=== PATIENT | female | born 1975 | race Caucasian/White ===

== ENCOUNTER 2017-07-10 16:48 | Inpatient (IN) ==
[2017-07-10] MEDS ORDERED: *HR* OxyCODONE/APAP 5/325 TABLET PO PRN (17:41)
[2017-07-10] MEDS ORDERED: Sennosides/Docusate Sodium TABLET PO PRN (17:41)
--- NOTE | 2017-07-10 17:53 | Internal Med History&Physical ---
Date of Encounter: 07/10/17 Time of Encounter: 17:50 Assessment and Plan (1) Brain tumor, glioma Current visit: Yes Status: Acute s/p Glioma exact pathology not known at the resent time as records are not available possible high grade s/p surgery needs followup (2) Diabetes 1.5, managed as type 2 Current visit: Yes Status: Chronic stable on metformin Sliding scale she is on steroid and will needs followup or adjusted to add insulin for time being HBA1c ordered Internal Medicine - H&P: HPI Chief complaint: s/p surgery craniotomy Admitted From: Intrahospital Transfer History of present illness: Ms. Donald is a 42 year old female who was transferred from [facility] after craniotomy and s/p tumor removel She states that she had a seizure few weeks ago and was found to have a tumor . One tumor was removed other wsd to be removed by radiation . most likely high grade glioblastoma Past Med Surg Social Fam HX - Past Medical History Medical history: other Psychiatric history: no psych history - Social History Smoking Status: Current every day smoker Smokeless Tobacco Status: No Alcohol use: unknown Drug use: unknown - Family History Father Hx Family Endocrine Disorder: Yes (diabetes) Internal Medicine - H&P: Meds Ascorbic Acid [Vitamin C] 500 mg PO DAILY 07/10/17 [History] Famotidine [Heartburn Prevention] 20 mg PO BIDWM 07/10/17 [History] LevETIRAcetam [Keppra] 500 mg PO BID 07/10/17 [History] metFORMIN [Glucophage] 500 mg PO BIDWM 07/10/17 [History] 3 Allergy/AdvReac Type Severity Reaction Status Date / Time Unable to Assess Allergy Verified 06/14/17 17:26 All Systems PM: A 10-system review of systems was performed and is negative for pertinent findings except as documented above in the HPI. - Constitutional Constitutional: no anorexia, no chills, no fever(s), no falls, no lethargy, no weakness, no weight gain, no weight loss - EENT Eyes: no blurry vision, no change in vision, no diplopia, no dry eye, no itchy eyes, no pain Nose, mouth and throat: no change in voice, no dysphagia, no facial pain, no mouth pain, no nasal congestion - Breasts Breasts: no nipple discharge, no swelling - Cardiovascular Cardiovascular ROS IM: no claudication, no diaphoresis, no dyspnea, no dyspnea on exertion, no edema, no irregular heart rhythm, no lightheadedness, no orthopnea, no palpitations - Respiratory Respiratory: no cough, no dyspnea, no dyspnea on exertion, no wheezing, no pain on inspiration, no chest congestion - Genitourinary Genitourinary: no urinary incontinence, no urinary urgency, no vaginal discharge Additional comments: normal periods per patient - Musculoskeletal Musculoskeletal ROS IM: no arthralgias, no atrophy, no back pain, no numbness, no stiffness, no tingling - Neurological Neurological ROS: convulsions, no disequilibrium, no dizziness, no focal weakness, no frequent falls, no headache(s), no lack of coordination, no loss of vision, no memory loss, no numbness, no tingling, no tremor(s), no vertigo, no weakness Additional comments: expressive aphasia noted - Constitutional Vitals: Temp Pulse Resp BP Pulse Ox 98.2 F 46 18 120/69 96 07/10/17 17:04 07/10/17 17:04 07/10/17 17:04 07/10/17 17:04 07/10/17 17:04 General appearance: Present: A&O X 2, morbidly obese, pleasant, answers questions appropriately. Absent: no acute distress Exam: expressive aphasia some inappropriate expression as laughing - Head Additional comments: has surgical scar front and middle area - Eye Eye exam: Present: EOMI, PERRL. Absent: scleral icterus, conjuntiva pink - Neck Neck exam general surgery: Present: supple. Absent: tenderness, nuchal rigidity - Respiratory Respiratory exam: Present: CTAB. Absent: respiratory distress, rhonchi, stridor , wheezes, tachypnea - Cardiovascular Cardiovascular exam: Present: bradycardia, RRR, +S1, +S2, +S3. Absent: distant heart sounds, irregular rhythm, JVD, systolic murmur - GI/Abdominal GI/Abdominal exam: Present: normal bowel sounds, soft. Absent: diminished bowel sounds, distended, guarding, rebound, rigid, tenderness - Extremities Exam Extremities exam: Absent: mottling, pedal edema, tenderness - Incison Incision: Present: clean and dry, intact. Absent: erythema - Neurological Exam Neurological exam: Present: CN II-XII intact, reflexes normal, no focal deficits , strengths equal and symetr throughout. Absent: facial droop, speech deficit Additional comments: expressive aphasia otherwise no neurological deficit noted at the present time
[2017-07-10] MEDS ORDERED: *HR* Dextrose 50 % in Water (Syg) 50 ML SYRINGE IVP PRN (17:59)
[2017-07-10] MEDS ORDERED: D5% in Water 1,000 ML IVC PRN (17:59)
[2017-07-10] MEDS ORDERED: Dextrose Gel 15 GM PO PRN ×2 (17:59)
[2017-07-10] MEDS: levETIRAcetam 250 MG TABLET PO SCH (21:13)
[2017-07-10] MEDS: Insulin LISPRO 300 UNITS/3 ML VIAL SQ SCH (21:14)
[2017-07-11 05:28] LABS: Basophils # 0.1 K/mcL (0.0-0.2); Basophils % 0.5 %; Eosinophils % 0.1 %; Hematocrit 33.1 % (35.3-44.9); Hemoglobin 11.4 g/dL (11.5-15.4); INR 1.1; Immature Granulocytes % 5.6 % (0-4); Lymphocytes # 4.1 K/mcL (0.6-4.6); Lymphocytes % 27.7 %; Mean Corpuscular HGB Conc 34.4 g/dL (31.6-35.5); Mean Corpuscular Volume 95.9 fL (83.0-100.0); Mean Platelet Volume 9.6 fL (9.4-12.4); Monocytes # 0.9 K/mcL (0.0-1.3); Monocytes % 6.2 %; Neutrophils # 8.9 K/mcL (1.6-8.9); Nucleated Red Blood Cells 0.3 /100 WBC (0); Platelet Count 233 K/mcL (140-400); Prothrombin Time 11.4 Seconds (9.4-12.1); Red Blood Count 3.45 M/mcL (3.82-4.97); Red Cell Distribution Width 13.2 % (11.5-14.5); Segmented Neutrophils % 59.9 %
[2017-07-11 05:32] LABS: Activated Partial Thrombo Time 22.1 Seconds (26.0-36.0)
[2017-07-11 05:39] LABS: BUN/Creatinine Ratio 30 (6-26); Blood Urea Nitrogen 26 mg/dL (7-20); Calcium 9.4 mg/dL (8.6-10.8); Carbon Dioxide 26 mEq/L (19-29); Chloride 101 mEq/L (98-109); Glucose 142 mg/dL (70-99); Osmolality,Calculated 297 (280-300); Potassium 4.4 mEq/L (3.5-4.5); Sodium 140 mEq/L (136-145); eGFR For African Americans > 60 (> 60); eGFR For Non-African Americans > 60 (> 60)
[2017-07-11] MEDS: *HR* Metformin 500 MG TABLET PO SCH ×2 (08:33→17:15)
[2017-07-11] MEDS: Ascorbic Acid 500 MG TABLET PO SCH (08:33)
[2017-07-11] MEDS: levETIRAcetam 250 MG TABLET PO SCH ×2 (08:33→20:29)
[2017-07-11] MEDS: Famotidine 20 MG TABLET PO SCH ×2 (08:33→17:15)
[2017-07-11] MEDS: Insulin LISPRO 300 UNITS/3 ML VIAL SQ SCH ×4 (08:34→20:30)
[2017-07-11 08:47] LABS: Hemoglobin A1C 6.6 %
--- NOTE | 2017-07-11 13:52 | Internal Med Progress Note ---
Date of Encounter: 07/11/17 Time of Encounter: 13:50 - Assessment and plan (1) Brain tumor, glioma Current Visit: Yes Status: Acute Assessment and plan: RI patient had craniotomy for the above. Here for therapy (2) Diabetes 1.5, managed as type 2 Current Visit: Yes Status: Chronic Assessment and plan: Sugars been followed - Time Spent With Patient less than 15 minutes - Subjective Interval history: Working with therapists. The issues are safety cognitive reaction and also she is having some aphagia difficulties. - Constitutional Vitals: Temp Pulse Resp BP Pulse Ox 97.8 F 50 16 118/76 98 07/11/17 11:00 07/11/17 11:00 07/11/17 11:00 07/11/17 11:00 07/11/17 11:00 General appearance: Present: A&O X 2, morbidly obese, pleasant, answers questions appropriately. Absent: no acute distress - Head Head exam: Present: atraumatic, normal inspection, normocephalic - Neck Neck exam general surgery: Present: supple, trachea midline. Absent: lymphadenopathy - Respiratory Respiratory exam: Present: CTAB. Absent: accessory muscle use, rales, rhonchi, wheezes - Cardiovascular Cardiovascular exam: Present: RRR, +S1, +S2. Absent: diastolic murmur, gallop, rubs, systolic murmur Internal Medicine: Result - Labs CBC & Chem 7: 07/11/17 04:50 07/11/17 04:50 Labs: Short CBC 07/11/17 Range/Units 04:50 WBC 14.9 H (4.3-11.1) K/mcL Hgb 11.4 L (11.5-15.4) g/dL Hct 33.1 L (35.3-44.9) % Plt Count 233 (140-400) K/mcL Neutrophils # 8.9 (1.6-8.9) K/mcL BMP 07/11/17 04:50 Sodium 140 Potassium 4.4 Chloride 101 Carbon Dioxide 26 BUN 26 H Creatinine 0.88 Glucose 142 H Calcium 9.4 Lab noted - ABG Interpretation ABG results: PT/INR, D-dimer PT 11.4 Seconds (9.4-12.1) 07/11/17 04:50 Consult Discharge Plan - Plan Referrals: NONE,PCP [Primary Care Provider] -
[2017-07-12] MEDS: levETIRAcetam 250 MG TABLET PO SCH ×2 (09:01→22:14)
[2017-07-12] MEDS: Famotidine 20 MG TABLET PO SCH ×2 (09:01→16:57)
[2017-07-12] MEDS: *HR* Metformin 500 MG TABLET PO SCH ×2 (09:01→16:57)
[2017-07-12] MEDS: Ascorbic Acid 500 MG TABLET PO SCH (09:01)
[2017-07-12] MEDS: Insulin LISPRO 300 UNITS/3 ML VIAL SQ SCH ×4 (09:02→22:13)
--- NOTE | 2017-07-12 12:46 | Physical Med Progress Note ---
Date of Encounter: 07/12/17 Time of Encounter: 12:38 Physical Medicine-PN: Subj Interval history: PMR PCC Note Patient admitted secondary to brain tumors. Patient did well with CRE. Patient able to cross at cross walks without cues. She has no safety issues for navigating the community. Patient ambulated 500 feet. She has some dizziness. No LOB. 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 Patient has difficulty with word finding. Patient has some issues with comprehension with multi step instructions. Patient supervision for shower safety. She required cues for sitting safely in the shower. Patient aware of errors, but unable to problem solve to correct them. Plan to discharge to home with supervision on 07/14/17. - Constitutional Vitals: Vital Signs Temp Pulse Resp BP Pulse Ox 07/12/17 06:00 97.5 F L 50 16 116/68 96 07/11/17 18:54 97.8 F 56 16 129/72 94 Intake and Output 07/11/17 07/12/17 07/12/17 23:59 07:59 15:59 Intake Total 500 / 500 200 / 200 960 / 960 Balance 500 / 500 200 / 200 960 / 960 Intake: Oral 500 / 500 200 / 200 960 / 960 Other: Meal Lunch Percent of Meal Consumed 100% # Voids 1 Blood Glucose* 228 144 189 Physical Medicine-PN: Obj Data - Labs CBC & Chem 7: 07/11/17 04:50 07/11/17 04:50 Labs: Laboratory Results - last 24 hr 07/11/17 07/11/17 07/11/17 07:43 16:38 20:12 POC Glucose 202 H 203 H 228 H - ABG Interpretation ABG results: PT/INR, D-dimer PT 11.4 Seconds (9.4-12.1) 07/11/17 04:50 Consult Discharge Plan - Plan Referrals: NONE,PCP [Primary Care Provider] -
[2017-07-13] MEDS: Ascorbic Acid 500 MG TABLET PO SCH (08:00)
[2017-07-13] MEDS: levETIRAcetam 250 MG TABLET PO SCH ×2 (08:00→21:24)
[2017-07-13] MEDS: *HR* Metformin 500 MG TABLET PO SCH ×2 (08:00→16:58)
[2017-07-13] MEDS: Famotidine 20 MG TABLET PO SCH ×2 (08:00→16:58)
[2017-07-13] MEDS: Insulin LISPRO 300 UNITS/3 ML VIAL SQ SCH ×4 (08:01→21:24)
--- NOTE | 2017-07-13 13:42 | Internal Med Progress Note ---
Date of Encounter: 07/13/17 Time of Encounter: 13:40 - Assessment and plan (1) Brain tumor, glioma Current Visit: Yes Status: Acute Assessment and plan: Patient had a glioma resected but I understand the prognosis for (2) Diabetes 1.5, managed as type 2 Current Visit: Yes Status: Chronic Assessment and plan: Yeses blood sugars are being followed - Time Spent With Patient less than 15 minutes - Subjective Interval history: Patient's, versus skills are pretty well normalized this point maybe an occasional word finding issue. She is aware of the cognitively there are times when things are not perfect but she is adjusting. She is functioning well ambulating in the sosa doing well on therapy - Constitutional Vitals: Temp Pulse Resp BP Pulse Ox 98.8 F 54 20 107/55 96 07/13/17 07:13 07/13/17 07:13 07/13/17 07:13 07/13/17 07:13 07/13/17 07:13 General appearance: Present: A&O X 2, morbidly obese, pleasant, answers questions appropriately. Absent: no acute distress - Head Head exam: Present: atraumatic, normocephalic - Neck Neck exam general surgery: Present: supple, trachea midline. Absent: lymphadenopathy - Respiratory Respiratory exam: Present: CTAB. Absent: accessory muscle use, rales, rhonchi, wheezes - Cardiovascular Cardiovascular exam: Present: RRR, +S1, +S2. Absent: diastolic murmur, gallop, rubs, systolic murmur - GI/Abdominal GI/Abdominal exam: Present: normal bowel sounds, soft, no peritoneal signs. Absent: distended, tenderness Internal Medicine: Result - Labs CBC & Chem 7: 07/11/17 04:50 07/11/17 04:50 Labs: Labs good - ABG Interpretation ABG results: PT/INR, D-dimer PT 11.4 Seconds (9.4-12.1) 07/11/17 04:50 Consult Discharge Plan - Plan Additional Instructions: Follow-up appointments: If there is not an appointment listed below, please call your physician and schedule a follow-up appointment. If you have congestive heart failure and your symptoms return, make an appointment with your physician. Medication List: Carry an up to date list of medications you are taking at all time. We have given you an updated medication list including any new medications that you have been prescribed. Please provide that list to your primary provider Symptoms: If your condition changes or you experience any of the following symptoms, notify your physician immediately: Unusual or worsening pain, fever, persistent nausea and vomiting, bleeding, increase in swelling (especially in your legs), sudden weight gain, extreme dizziness, chest pain, increased drainage or redness from a wound or incision. Go to the emergency department if you experience a problem with breathing. Weights: If you have a history of swelling or shortness of breath, weigh yourself daily and notify your physician if you have a weight gain of two or more pounds in one day or 5 or more pounds in a week. If you experience any of the warning signs for stroke: Sudden numbness or weakness of the face, arm or leg; especially on one side of the body, sudden confusion, trouble speaking or understanding, sudden trouble seeing in one or both eyes, sudden trouble walking, dizziness, loss of balance or coordination, sudden sever headache with no cause; Call 911 or go to the emergency room. Stroke is a medical emergency. Some risk factors for stroke: Age, cigarette smoking, diabetes, excessive alcohol consumption, family history , high blood pressure, overweight, physical inactivity, prior stroke, heart attack, diagnosis of carotid artery stenosis or other artery disease. If you smoke, STOP: Smoking or tobacco use significantly increases your risk of heart and lung disease. Your chance of disease greatly increases if you continue to smoke. For more information, call the [place] tobacco quit line for smoking cessation 2- QUIT-NOW ( ) Referrals: Dimitris Jacinto [Other] - 07/20/17 1:00 pm ([address] [place] [address] [facility] [id number] [facility] Delicia Dacosta [Other] - 07/20/17 4:00 pm (follow with Neurological physicians ) Lance Blake [Other] - 08/15/17 3:35 pm Cullen mosquera [Other] - 09/27/17 3:00 pm (MD follow up appointment for Neuological physicians) NONE,PCP [Primary Care Provider] -
[2017-07-14 07:26] VITALS: BP 146/73
[2017-07-14] MEDS: Insulin LISPRO 300 UNITS/3 ML VIAL SQ SCH ×2 (07:56→11:36)
[2017-07-14] MEDS: *HR* Metformin 500 MG TABLET PO SCH (08:36)
[2017-07-14] MEDS: Famotidine 20 MG TABLET PO SCH (08:36)
[2017-07-14] MEDS: Ascorbic Acid 500 MG TABLET PO SCH (08:36)
[2017-07-14] MEDS: levETIRAcetam 250 MG TABLET PO SCH (08:37)
--- NOTE | 2017-07-14 13:18 | Discharge Summary ---
Date of Encounter: 07/14/17 Time of Encounter: 13:16 - Discharge Diagnosis (1) Brain tumor, glioma Priority: Primary Status: Acute Comments: Patient had a craniotomy with resection of glioma. She has follow-up. (2) Diabetes 1.5, managed as type 2 Priority: Secondary Status: Chronic Comments: While in blood sugars - Discharge Medications Home Medications: Ascorbic Acid [Vitamin C] 500 mg PO DAILY 07/10/17 [History] Famotidine [Heartburn Prevention] 20 mg PO BIDWM 07/10/17 [History] LevETIRAcetam [Keppra] 500 mg PO BID 07/10/17 [History] metFORMIN [Glucophage] 500 mg PO BIDWM 07/10/17 [History] Allergies/Adverse Reactions: 3 Allergy/AdvReac Type Severity Reaction Status Date / Time Penicillins AdvReac Hives Verified 07/10/17 20:02 Date of admission: 07/10/17 16:50 Primary care physician: PCP NONE Consults: 07/10/17 18:00 Consult to Occupational Therapy [CONS] Routine Comment: Evaluate, develop and implement POC Reason for Consult: craniotomy Consult to Physical Therapy [CONS] Routine Comment: Evaluate, develop and implement POC Reason for Consult: craniotomy Consult to Recreational Therapy [CONS] Routine Comment: Evaluate, develop and implement POC Consult to Speech Therapy [CONS] Routine Comment: Evaluate, develop and implement POC Reason for Consult: expressive aphasia Call Completed: Yes Discharging clinician: Robert Acharya Anticipated date of discharge: 07/14/17 - Patient Status Disposition: Home, Self-Care Condition: Good Functional capacity at discharge: independent ambulation Overall status at discharge: patient is progressing back to baseline - Discharge Instructions Follow Up With: Dimitris Jacinto [Other] - 07/20/17 1:00 pm ([address] [place] [id number] ) Delicia Dacosta [Other] - 07/20/17 4:00 pm (follow with Neurological physicians ) Lance Blake [Other] - 08/15/17 3:35 pm Cullen mosquera [Other] - 09/27/17 3:00 pm (MD follow up appointment for Neuological physicians) NONE,PCP [Primary Care Provider] - Additional Instructions: Follow-up appointments: If there is not an appointment listed below, please call your physician and schedule a follow-up appointment. If you have congestive heart failure and your symptoms return, make an appointment with your physician. Medication List: Carry an up to date list of medications you are taking at all time. We have given you an updated medication list including any new medications that you have been prescribed. Please provide that list to your primary provider Symptoms: If your condition changes or you experience any of the following symptoms, notify your physician immediately: Unusual or worsening pain, fever, persistent nausea and vomiting, bleeding, increase in swelling (especially in your legs), sudden weight gain, extreme dizziness, chest pain, increased drainage or redness from a wound or incision. Go to the emergency department if you experience a problem with breathing. Weights: If you have a history of swelling or shortness of breath, weigh yourself daily and notify your physician if you have a weight gain of two or more pounds in one day or 5 or more pounds in a week. If you experience any of the warning signs for stroke: Sudden numbness or weakness of the face, arm or leg; especially on one side of the body, sudden confusion, trouble speaking or understanding, sudden trouble seeing in one or both eyes, sudden trouble walking, dizziness, loss of balance or coordination, sudden sever headache with no cause; Call 911 or go to the emergency room. Stroke is a medical emergency. Some risk factors for stroke: Age, cigarette smoking, diabetes, excessive alcohol consumption, family history , high blood pressure, overweight, physical inactivity, prior stroke, heart attack, diagnosis of carotid artery stenosis or other artery disease. If you smoke, STOP: Smoking or tobacco use significantly increases your risk of heart and lung disease. Your chance of disease greatly increases if you continue to smoke. For more information, call the [place] tobacco quit line for smoking cessation - QUIT-NOW ( ) - Diet and Activity Activity: as per physical therapy Diet: advance to your usual diet Interval History: Patient was sent here after craniotomy for glioma. And she will follow-up as indicated Hospital course: Ms. Donald is a 42 year old female Patient was sent here after craniotomy. She has cognitive issues which she is ambulating and eating and doing ADLs reasonably independently now. - Time Spent with Patient Total time spent providing and/or coordinating discharge services: Less than 30 minutes - Constitutional Vitals: Temp Pulse Resp BP Pulse Ox 97.6 F 74 18 146/73 96 07/14/17 07:26 07/14/17 07:26 07/14/17 07:26 07/14/17 07:26 07/14/17 07:26 General appearance: Present: A&O X 2, morbidly obese, pleasant, answers questions appropriately. Absent: no acute distress - Head Head exam: Present: atraumatic, normal inspection, normocephalic Additional comments: Patient does have a craniotomy incision with sutures but it looks clean and dry - Neck Neck exam general surgery: Present: supple, trachea midline. Absent: lymphadenopathy - Respiratory Respiratory exam: Present: CTAB. Absent: accessory muscle use, rales, rhonchi, wheezes - Cardiovascular Cardiovascular exam: Present: RRR, +S1, +S2. Absent: diastolic murmur, gallop, rubs, systolic murmur
[2017-07-14] MEDS ORDERED: FLUARIX QUAD 2017-18 36MOS UP/PF 0.5 ML SYRINGE IM ONE (13:38)
== END 2017-07-14 14:40 | disposition home or self-care (01) | DRG 949 ==
LOC: INPGRE 16:50
PROVIDERS: ADMIT Internal Medicine; ATTEND Internal Medicine